=== PATIENT | male | born 1970 | race Caucasian/White ===

== ENCOUNTER 2024-12-29 14:26 | Emergency (ER) | payer SELFPAY ==
[2024-12-29 14:43] VITALS: BP 144/75; PULSE 68; RESP 18; TEMP 36.6; O2SAT 95; BMI 27.5
[2024-12-29] MEDS: DEXAMETHASONE SOD PHOS INJ 10 MG/ML VIAL PO (15:05)
[2024-12-29] MEDS: KETOROLAC INJ 30 MG/ML VIAL IM (15:05)
--- NOTE | 2024-12-29 18:00 | PD.EDLOWEX ---
Lower Extremity Injury RME/HPI General Chief Complaint: Extremity Injury, Lower Stated Complaint: L) LEG PAIN X 3 WKS Time Seen by Provider: 12/29/24 14:36 Arrival date/time: 12/29/24 14:26 54-year-old male presents to the emergency department today for complaints of acute on chronic left knee pain patient reports he has seen his primary care doctor had imaging completed patient also reports has been given pain medications that are not working. Patient reports no calf pain no foot pain no swelling of the extremity patient reports pain is mostly in the medial aspect of the left knee Limitations: no limitations Related Data Previous Rx's ?Medication ?Instructions ?Recorded hydrocodone 5 mg-acetaminophen 300 1 tab PO Q4H PRN pain #14 tabs 1225/19 mg tablet hydrocodone 5 mg-acetaminophen 325 1 tab PO Q4H PRN pain #6 tabs 25/19 mg tablet ([place]) hydrocodone 5 mg-acetaminophen 325 1 tab PO BID PRN pain #10 tabs 12/29/24 mg tablet indomethacin 50 mg capsule 50 mg PO TID 5 days #15 caps 12/29/24 Allergies Allergy/AdvReac Type Severity Reaction Status Date / Time No Known Allergies Allergy Verified 12/29/24 14:30 Review of Systems Review of Systems Systems Reviewed: All systems reviewed, normal except as documented Constitutional Constitutional: Reports system reviewed and no additional complaints, except as documented, Denies fever(s) and Denies headache(s) Eyes Eyes: Reports system reviewed and no additional complaints, except as documented and Denies blurry vision ENT Ears, Nose, Mouth, and Throat: Reports system reviewed and no additional complaints, except as documented, Denies headache(s), Denies nasal congestion and Denies nasal discharge Cardiovascular Cardiovascular: Reports system reviewed and no additional complaints, except as documented, Denies chest pain and Denies dyspnea Respiratory Respiratory: Reports system reviewed and no additional complaints, except as documented, Denies chest congestion, Denies cough and Denies dyspnea Gastrointestinal Gastrointestinal: Reports system reviewed and no additional complaints, except as documented and Denies abdominal pain Musculoskeletal Musculoskeletal: Reports system reviewed and no additional complaints, except as documented, Reports arthralgias, Denies deformity, Denies numbness, Reports stiffness and Denies tingling Integumentary/Breasts Skin/Breast: Reports system reviewed and no additional complaints, except as documented and Denies rash Neurologic Neurologic: Reports system reviewed and no additional complaints, except as documented, Reports as per HPI, Denies headache(s), Denies numbness and Denies tingling Past Medical History Past Medical History CARDIAC: Negative Congestive Heart Failure RESPIRATORY: Negative Chronic Obstructive Pulmonary Disease (COPD) GENITOURINARY: Negative Renal Disease ENDOCRINE: Negative Diabetes Mellitus Type 1 or Diabetes Mellitus Type 2 Social History SMOKING STATUS: Never smoker ED Exam General Limitations: Present no limitations General appearance: Present alert and in no apparent distress Head Head exam: Present atraumatic Eye Eye exam: Present normal appearance, PERRL and EOMI ENT ENT exam: Present normal exam, normal oropharynx and mucous membranes moist Neck Neck exam: Present normal inspection, full ROM and trachea midline Chest Chest inspection: Present normal inspection and symmetric chest wall rise Respiratory Respiratory exam: Present normal lung sounds bilaterally Cardiovascular Cardiovascular exam: Present regular rate, normal rhythm and normal heart sounds Abdominal Exam Abdominal exam: Present soft and normal bowel sounds Extremities Exam Extremities exam: Present normal inspection, full ROM, tenderness (Left knee pain) and normal capillary refill; Absent pedal edema, joint swelling or calf tenderness Back Exam Back exam: Present normal inspection and full ROM; Absent tenderness or CVA tenderness (R) Neurological Exam Neurological exam: Present alert, oriented X3 and CN II-XII intact Psychiatric Psychiatric exam: Present normal affect and normal mood Skin Skin exam: Present warm, dry, intact and normal color Course Quality Measures none Orders Category Date Time Status Dexamethasone Inj [Decadron Inj] Med 12/29/24 14:54 Discontinued 10 mg PO X1 ONE Ketorolac Inj [Toradol Inj] Med 12/29/24 14:54 Discontinued 30 mg IM X1 ONE Vital Signs Vital signs: Vital Signs Temperature 97.8 F 12/29/24 14:43 Pulse Rate 68 12/29/24 14:43 Respiratory Rate 18 12/29/24 14:43 Blood Pressure 144/75 H 12/29/24 14:43 Pulse Oximetry (%) 95 12/29/24 14:43 Oxygen Delivery Method Room Air 12/29/24 14:43 O2 saturation 95% room air with normal Extremity Injury, Lower MDM Narrative MDM Narrative:: 54-year-old male presents to the emergency department today for complaints of acute on chronic left knee pain patient reports he has seen his primary care doctor had imaging completed patient also reports has been given pain medications that are not working. Patient reports no calf pain no foot pain no swelling of the extremity patient reports pain is mostly in the medial aspect of the left knee On exam patient has no swelling or bruising of the knee or the leg As x-rays of already been completed I do not believe x-rays are indicated at this time I did explain to the patient as he is had 1 month of knee pain at this point I would recommend he does have an MRI on an outpatient basis patient states understanding Patient was given pain medication here and discharged home with pain meds For emergent concerns patient is instructed return immediately otherwise follow-up with PCP for further evaluation Patient data External records reviewed:: [facility] previous records Clinical information provided by:: patient Social determinants that could affect healthcare access:: none Patient has the following chronic illnesses:: None How is presenting disease/condition affected by chronic disease/condition?: no chronic disease Evaluation data The following diagnostics were reviewed and interpreted by me:: other (specify) (N/A) Lab and/or radiology exams considered but not ordered:: Considered not indicated Interpretation Summary: N/A Medications / Prescriptions Medications or Prescriptions considered but not ordered:: Given Medication administrations:: Medication Administration History Discontinued Medications Dexamethasone Sodium Phosphate (Dexamethasone Sod Phos Inj 10 Mg/Ml Vial) 10 mg PO X1 ONE Stop: 12/29/24 14:55 Last Admin: 12/29/24 15:05 Dose: 10 mg Documented By: OA Ketorolac Tromethamine (Ketorolac Inj 30 Mg/Ml Vial) 30 mg IM X1 ONE Stop: 12/29/24 14:55 Last Admin: 12/29/24 15:05 Dose: 30 mg Documented By: OA Given Consultations Consultation(s) initiated? (list below): No Diagnosis Extremity Injury, Lower Differential Diagnosis: acute internal derangement of knee and other (Knee sprain, knee fracture) Most likely diagnosis given after review of the tests above:: Sprain left Admission Indicated Admission indicated?: not indicated Admission Request Was there a request for admission?: No Disposition Plan Disposition Plan: Discharge Discharge Attestation Discharge Attestation: The patient and all family members were given an opportunity to ask questions and understood the discharge instructions. Discharge instructions specifically effects, indications for sooner follow up or return to the emergency department, and the expected course of current diagnosis. Patient condition: Stable Discharge Plan Plan Patient Disposition: HOME (Self Care) Discharge Disposition comment: Stable Prescriptions/Referrals Prescriptions/Med Rec: New hydrocodone-acetaminophen 5-325 mg tablet 1 tab PO BID MDD 10 PRN (Reason: pain) Qty: 10 0RF indomethacin 50 mg capsule 50 mg PO TID 5 Days Qty: 15 0RF Rx Instructions: administer with food or milk No Action hydrocodone-acetaminophen 5-300 mg tablet 1 tab PO Q4H MDD 4 PRN (Reason: pain) Qty: 14 0RF hydrocodone-acetaminophen [[place]] 5-325 mg tablet 1 tab PO Q4H MDD 4 PRN (Reason: pain) Qty: 6 0RF Problem List Clinical Impression: Acute pain of left knee Patient/Caregiver Discharge Instructions Education Materials: ED Arthralgia Additional Instructions: Please follow up with your primary care doctor in the next 24-48hrs for any worsening symptoms return here immediately Please request outpatient MRI for PCP for worsening conditions return immediately Print Language: Indonesian Stand Alone Forms: Anitha Award Info., Work/School Release, Patient Portal Info Letter PA/GABE Supervising Physician PA/GABE Supervising Physician: Dr. Caban
== END 2024-12-29 15:42 | disposition home or self-care (01) ==
LOC: SERX 15:14
PROVIDERS: Emergency Provider Emergency Medicine; PCP Family Medicine
DX: M25.562 Pain in left knee (principal); G89.29 Other chronic pain
CPT/HCPCS: 96372; 99282; J1100; J1885